=== PATIENT | female | born 1990 | race Hispanic/Latino ===

== ENCOUNTER 2018-04-27 19:44 | Emergency (ER) | payer MEDICAID, OTHER ==
[~2018-04-27 19:44] MED LIST: PNV11TAB5 PO; PREN1TAB26 PO
[2018-04-27] MEDS ORDERED: SODIUM CHLORIDE 0.9% 1000ML 1,000 ML IV ONE (20:07)
[2018-04-27 20:22] LABS: BASOPHILS % (AUTO) 0.3 % (0.0-5.0); EOSINOPHILS % (AUTO) 2.8 % (0.0-8.0); HEMATOCRIT 32.8 % (36-48); MEAN CORPUSCULAR HGB CONC 32.6 g/dL (32.0-36.0); MEAN CORPUSCULAR VOLUME 79.9 fL (79-99); MONOCYTES % (AUTO) 5.7 % (3.0-13.0); NEUTROPHILS % (AUTO) 56.2 % (40.0-77.0); PLATELET COUNT (AUTO) 310 K/uL (130-400); RED CELL DISTRIBUTION WIDTH 14.9 % (11.0-15.5); WHITE BLOOD COUNT (AUTO) 7.8 K/uL (4.8-10.8)
[2018-04-27 20:36] LABS: BILIRUBIN,URINE NEGATIVE (NEGATIVE); GLUCOSE, URINE (UA) NEGATIVE (NEGATIVE); KETONES,URINE NEGATIVE (NEGATIVE); LEUKOCYTE ESTERASE ,URINE NEGATIVE (NEGATIVE); NITRATE,URINE NEGATIVE (NEGATIVE); OCCULT BLOOD,URINE LARGE (NEGATIVE); PROTEIN,URINE >=300 (NEGATIVE); UROBILINOGEN,URINE 0.2 mg/dL (0.2-1.0)
[2018-04-27 20:37] LABS: APPEARANCE,URINE BLOODY (CLEAR); COLOR,URINE RED (YELLOW)
[2018-04-27 20:40] LABS: BACTERIA,URINE Few /HPF (None Seen); RBC,URINE Full Field /HPF (0-1); SQUAMOUS EPITHELIAL CELL,UR None Seen /HPF (0-2)
[2018-04-27 20:42] LABS: CREATININE 0.7 mg/dL (0.5-1.5); POTASSIUM 3.4 mmol/L (3.5-5.1)
[2018-04-27 20:53] LABS: ALBUMIN 4.1 g/dL (3.5-5.0); BILIRUBIN,TOTAL 0.2 mg/dL (0.2-1.0); TOTAL PROTEIN, SERUM 7.9 g/dL (6.0-8.3)
== END 2018-04-27 23:46 | disposition home or self-care (01) ==
LOC: EDH 19:44
DX: O20.0 Threatened abortion (principal); N92.0 Excessive and frequent menstruation with regular cycle; Z3A.01 Less than 8 weeks gestation of pregnancy
CPT/HCPCS: 36415; 76801; 80053; 81001; 84702; 85025; 99285; J7030

== ENCOUNTER 2019-06-24 14:31 | Emergency (ER) | payer MEDICAID, OTHER ==
[2019-06-24 15:19] LABS: APPEARANCE,URINE Clear (CLEAR); BILIRUBIN,URINE Negative (NEGATIVE); COLOR,URINE Dark Yellow (YELLOW); GLUCOSE, URINE (UA) Negative (NEGATIVE); KETONES,URINE 15 mg/dL (NEGATIVE); LEUKOCYTE ESTERASE ,URINE Moderate (NEGATIVE); NITRATE,URINE Negative (NEGATIVE); OCCULT BLOOD,URINE Negative (NEGATIVE); PH,URINE 5.5 (5.0-8.0); PROTEIN,URINE POS 1+ mg/dL (NEGATIVE)
[2019-06-24 15:24] LABS: HCG,QUAL RESULT NEGATIVE (NEGATIVE)
[2019-06-24 15:34] LABS: AMORPHOUS SEDIMENT,UR Few /LPF (None Seen); BACTERIA,URINE Few /HPF (None Seen); MUCUS,URINE Many LPF (None Seen); RBC,URINE None Seen /HPF (0-1)
[2019-06-24 15:39] LABS: RAPID GROUP A STREP NEGATIVE (NEGATIVE)
== END 2019-06-24 16:05 | disposition home or self-care (01) ==
LOC: EDH 14:31
DX: J10.1 Influenza due to other identified influenza virus with other respiratory manifestations (principal)
CPT/HCPCS: 81001; 81025; 87804; 87880

== ENCOUNTER 2020-06-29 11:05 | Emergency (ER) | payer MEDICAID, OTHER ==
[2020-06-29 12:12] LABS: APPEARANCE,URINE Cloudy (CLEAR); BILIRUBIN,URINE Negative (NEGATIVE); COLOR,URINE Yellow (YELLOW); GLUCOSE, URINE (UA) Negative (NEGATIVE); KETONES,URINE Negative (NEGATIVE); LEUKOCYTE ESTERASE ,URINE Negative (NEGATIVE); NITRATE,URINE Negative (NEGATIVE); OCCULT BLOOD,URINE Negative (NEGATIVE); PROTEIN,URINE Negative (NEGATIVE); UROBILINOGEN,URINE 0.2 mg/dL (0.2-1.0)
[2020-06-29 12:17] LABS: BASOPHILS % (AUTO) 0.2 % (0.0-5.0); EOSINOPHILS % (AUTO) 0.7 % (0.0-8.0); HEMATOCRIT 35.7 % (36-48); MEAN CORPUSCULAR HEMOGLOBIN 26.8 pg (27.0-33.0); MEAN CORPUSCULAR HGB CONC 32.8 g/dL (32.0-36.0); MEAN CORPUSCULAR VOLUME 81.7 fL (79-99); MONOCYTES % (AUTO) 6.9 % (3.0-13.0); NEUTROPHILS % (AUTO) 66.9 % (40.0-77.0); PLATELET COUNT (AUTO) 312 K/uL (130-400); RED BLOOD CELL COUNT(AUTO) 4.37 MIL/uL (4.00-5.50); RED CELL DISTRIBUTION WIDTH 15.8 % (11.0-15.5); WHITE BLOOD COUNT (AUTO) 9.2 K/uL (4.8-10.8)
[2020-06-29] MEDS ORDERED: ONDANSETRON 4MG INJ ONE (12:23)
[2020-06-29] MEDS ORDERED: HYDROCODONE/ACETAMINOPHEN 10/325 MG TAB ONE (12:23)
[2020-06-29 12:25] LABS: BACTERIA,URINE Few /HPF (None Seen); RBC,URINE 0-1 /HPF (0-1); WBC,URINE 0-1 /HPF (0-1)
[2020-06-29 12:26] LABS: CREATININE 0.6 mg/dL (0.5-1.5); POTASSIUM 3.8 mmol/L (3.5-5.1)
[2020-06-29 12:30] LABS: ALBUMIN 3.4 g/dL (3.5-5.0); BILIRUBIN,TOTAL 0.1 mg/dL (0.2-1.0); TOTAL PROTEIN, SERUM 7.4 g/dL (6.0-8.3)
[2020-12-13] MEDS ORDERED: PNV11TAB5 PO (06:15)
[2020-12-13] MEDS ORDERED: CALC500T7 PO (06:15)
== END 2020-06-29 14:34 | disposition home or self-care (01) ==
LOC: EDH 11:05
DX: O26.891 Other specified pregnancy related conditions, first trimester (principal); R10.32 Left lower quadrant pain; Z3A.01 Less than 8 weeks gestation of pregnancy
CPT/HCPCS: 36415; 76801; 80053; 81001; 81025; 83690; 84702; 85025; 96361; 96374; 99284; J2405

== ENCOUNTER 2021-01-11 14:38 | Observation (INO) | payer MEDICAID ==
[~2021-01-11 14:38] MED LIST changes: +CALC500T7 PO
[2021-01-11] MEDS ORDERED: DEXTROSE 5%-LACTATED RINGERS 1,000 ML IV SCH (15:30)
== END 2021-01-11 17:30 | disposition home or self-care (01) ==
LOC: LDH 14:38
PROVIDERS: ADMIT Obstetrics & Gynecology; ATTEND Obstetrics & Gynecology
DX: O36.8130 Decreased fetal movements, third trimester, not applicable or unspecified (principal); O99.343 Other mental disorders complicating pregnancy, third trimester; F41.9 Anxiety disorder, unspecified; Z3A.35 35 weeks gestation of pregnancy; Z90.49 Acquired absence of other specified parts of digestive tract
CPT/HCPCS: 59025; 76819; G0378 ×2; 96360

== ENCOUNTER 2021-01-19 20:02 | Observation (INO) | payer MEDICAID ==
[~2021-01-19] VITALS: Ht 157.5 cm; Wt 83.5 kg
[2021-01-19 20:04] VITALS: BP 133/60
[2021-01-19 21:36] LABS: AMPHET/METH SCREEN,URINE NEGATIVE (NEGATIVE); BARBITURATE SCREEN, URINE NEGATIVE (NEGATIVE); BENZODIAZEPINES SCREEN,URINE NEGATIVE (NEGATIVE); CANNABINOID SCREEN,URINE NEGATIVE (NEGATIVE); COCAINE SCREEN,URINE NEGATIVE (NEGATIVE); OPIATE SCREEN,URINE NEGATIVE (NEGATIVE); PHENCYCLIDINE SCREEN,URINE NEGATIVE (NEGATIVE)
[2021-01-19 22:46] LABS: APPEARANCE,URINE Clear (CLEAR); BILIRUBIN,URINE Negative (NEGATIVE); COLOR,URINE Yellow (YELLOW); GLUCOSE, URINE (UA) 250 mg/dL (NEGATIVE); KETONES,URINE Negative (NEGATIVE); LEUKOCYTE ESTERASE ,URINE Trace (NEGATIVE); NITRATE,URINE Negative (NEGATIVE); OCCULT BLOOD,URINE Negative (NEGATIVE); PH,URINE 6.5 (5.0-8.0); PROTEIN,URINE Negative (NEGATIVE)
[2021-01-19 22:56] LABS: BACTERIA,URINE Few /HPF (None Seen); RBC,URINE None Seen /HPF (0-1); SQUAMOUS EPITHELIAL CELL,UR Moderate /HPF (0-2); WBC,URINE 0-1 /HPF (0-1); YEAST,URINE BUDDING None Seen /HPF (None Seen)
[2021-01-19] MEDS ORDERED: LACTATED RINGERS 1000ML 1,000 ML IV SCH (23:00)
== END 2021-01-19 23:55 | disposition home or self-care (01) ==
LOC: EDH 20:02 → LDH 20:03
PROVIDERS: ADMIT Obstetrics & Gynecology; ATTEND Obstetrics & Gynecology
DX: O99.891 Other specified diseases and conditions complicating pregnancy (principal); M54.5 Low back pain; O62.9 Abnormality of forces of labor, unspecified; Z3A.36 36 weeks gestation of pregnancy; Z79.899 Other long term (current) drug therapy; Z98.890 Other specified postprocedural states
CPT/HCPCS: 59025; 80305; 81001; 96360; G0378 ×3

== ENCOUNTER 2021-01-20 15:22 | Observation (INO) | payer MEDICAID ==
[~2021-01-20] VITALS: Ht 165.1 cm; Wt 83.0 kg
[2021-01-20 15:24] VITALS: BP 128/68
[2021-01-20 16:04] LABS: APPEARANCE,URINE Clear (CLEAR); BILIRUBIN,URINE Negative (NEGATIVE); COLOR,URINE Yellow (YELLOW); GLUCOSE, URINE (UA) Negative (NEGATIVE); KETONES,URINE Negative (NEGATIVE); LEUKOCYTE ESTERASE ,URINE Negative (NEGATIVE); NITRATE,URINE Negative (NEGATIVE); OCCULT BLOOD,URINE Negative (NEGATIVE); PROTEIN,URINE Negative (NEGATIVE)
== END 2021-01-20 17:30 | disposition home or self-care (01) ==
LOC: EDH 15:22 → LDH 15:23
PROVIDERS: ADMIT Obstetrics & Gynecology; ATTEND Obstetrics & Gynecology
DX: O99.891 Other specified diseases and conditions complicating pregnancy (principal); M54.5 Low back pain; R10.30 Lower abdominal pain, unspecified; Z3A.36 36 weeks gestation of pregnancy
CPT/HCPCS: 59025; 81003; G0378

== ENCOUNTER 2021-02-01 12:01 | Observation (INO) | payer MEDICAID ==
[~2021-02-01] VITALS: Ht 157.5 cm; Wt 83.0 kg
[2021-02-01 12:03] VITALS: BP 125/74
== END 2021-02-01 15:15 | disposition home or self-care (01) ==
LOC: EDH 12:01 → LDH 12:02
PROVIDERS: ADMIT Obstetrics & Gynecology; ATTEND Obstetrics & Gynecology
DX: O62.9 Abnormality of forces of labor, unspecified (principal); Z3A.38 38 weeks gestation of pregnancy; Z79.899 Other long term (current) drug therapy; Z98.890 Other specified postprocedural states
CPT/HCPCS: 59025; 76805; G0378

== ENCOUNTER 2021-02-06 21:57 | Inpatient (IN) | payer MEDICAID ==
[~2021-02-06] VITALS: Ht 157.5 cm; Wt 83.9 kg
[~2021-02-06 21:57] MED LIST changes: +METHYLERGONOVINE MALEATE 0.2 MG/1 ML ML IM ONE; +OXYTOCIN 10 USP UNITS/ML IM ONE
[2021-02-06] MEDS ORDERED: NALOXONE HCL 0.4 MG/1 ML ML IV PRN (22:30)
[2021-02-06] MEDS ORDERED: LACTATED RINGERS 500 ML 500 ML IV PRN (22:30)
[2021-02-06] MEDS ORDERED: LACTATED RINGERS 1000ML 1,000 ML IV PRN (22:30)
[2021-02-06] MEDS ORDERED: ROPIVACAINE 0.2% 100ML VIAL 100 ML EP PRN (22:30)
[2021-02-06] MEDS ORDERED: PROMETHAZINE HCL 25 MG/ML 1ML AMPULE IM PRN (22:30)
[2021-02-06] MEDS ORDERED: MEPERIDINE-PF 50 MG/ML SYG IVP PRN (22:30)
[2021-02-06] MEDS ORDERED: EPHEDRINE SULFATE 50 MG/ML AMPULE IVP PRN (22:30)
[2021-02-06 23:00] VITALS: BP 120/78
[2021-02-06 23:24] LABS: HEMATOCRIT 26.7 % (36-48); MEAN CORPUSCULAR HEMOGLOBIN 21.8 pg (27.0-33.0); MEAN CORPUSCULAR HGB CONC 30.7 g/dL (32.0-36.0); MEAN CORPUSCULAR VOLUME 70.8 fL (79-99); PLATELET COUNT (AUTO) 283 K/uL (130-400); RED BLOOD CELL COUNT(AUTO) 3.77 MIL/uL (4.00-5.50); RED CELL DISTRIBUTION WIDTH 18.2 % (11.0-15.5); WHITE BLOOD COUNT (AUTO) 6.5 K/uL (4.8-10.8)
[2021-02-07 02:13] LABS: APPEARANCE,URINE Clear (CLEAR); BILIRUBIN,URINE Negative (NEGATIVE); COLOR,URINE Yellow (YELLOW); GLUCOSE, URINE (UA) Negative (NEGATIVE); KETONES,URINE Negative (NEGATIVE); LEUKOCYTE ESTERASE ,URINE Negative (NEGATIVE); NITRATE,URINE Negative (NEGATIVE); OCCULT BLOOD,URINE Negative (NEGATIVE); PH,URINE 6.5 (5.0-8.0); PROTEIN,URINE Negative (NEGATIVE)
[2021-02-07 02:21] LABS: AMPHET/METH SCREEN,URINE NEGATIVE (NEGATIVE); BARBITURATE SCREEN, URINE NEGATIVE (NEGATIVE); BENZODIAZEPINES SCREEN,URINE NEGATIVE (NEGATIVE); CANNABINOID SCREEN,URINE NEGATIVE (NEGATIVE); COCAINE SCREEN,URINE NEGATIVE (NEGATIVE); OPIATE SCREEN,URINE NEGATIVE (NEGATIVE); PHENCYCLIDINE SCREEN,URINE NEGATIVE (NEGATIVE)
[2021-02-07] MEDS ORDERED: OXYTOCIN-LR 20 UNITS/1000 ML 1,000 ML IV SCH ×2 (04:00→12:00)
[2021-02-07] MEDS ORDERED: MISOPROSTOL 200 MCG TABLET ONE (08:11)
[2021-02-07] MEDS ORDERED: ACETAMINOPHEN 325 MG TAB PO PRN (12:00)
[2021-02-07] MEDS ORDERED: MEASLES/MUMPS/RUBELLA VACCINE, LIVE 0.5 ML/VIAL SQ PRN (12:00)
[2021-02-07] MEDS ORDERED: DIPH,PERTUSS(ACELL),TET VAC/PF 0.5 ML VIAL IM PRN (12:00)
[2021-02-07] MEDS ORDERED: WITCH HAZEL 1 PAD TP PRN (12:00)
[2021-02-07] MEDS ORDERED: LANOLIN 30GM OINTMENT TP PRN (12:00)
[2021-02-07] MEDS ORDERED: BENZOCAINE/LANOLIN/ALOE VERA 60 ML AEROSOL TP PRN (12:00)
[2021-02-07] MEDS ORDERED: OXYTOCIN 10 USP UNITS/ML IV SCH (12:00)
[2021-02-07] MEDS ORDERED: METHYLERGONOVINE MALEATE 0.2 MG/1 ML ML IM SCH (12:00)
[2021-02-07] MEDS ORDERED: ACETAMINOPHEN WITH CODEINE 1 TAB TAB PO PRN (12:00)
[2021-02-07] MEDS: IBUPROFEN 600 MG TABLET PO PRN (12:51)
[2021-02-07 13:47] VITALS: BP 122/74
[2021-02-07 16:40] VITALS: BP 128/82
[2021-02-07 20:30] VITALS: BP 131/83
[2021-02-07] MEDS: DOCUSATE SODIUM 100 MG CAP PO SCH (21:37)
[2021-02-07 23:35] VITALS: BP 123/76
[2021-02-08] MEDS: IBUPROFEN 600 MG TABLET PO PRN (01:12)
[2021-02-08 03:36] VITALS: BP 119/70
[2021-02-08 06:31] LABS: MEAN CORPUSCULAR HEMOGLOBIN 21.8 pg (27.0-33.0); MEAN CORPUSCULAR VOLUME 72.8 fL (79-99); RED BLOOD CELL COUNT(AUTO) 3.57 MIL/uL (4.00-5.50); RED CELL DISTRIBUTION WIDTH 18.3 % (11.0-15.5); WHITE BLOOD COUNT (AUTO) 9.7 K/uL (4.8-10.8)
[2021-02-08 07:30] VITALS: BP 109/55
[2021-02-08] MEDS: DOCUSATE SODIUM 100 MG CAP PO SCH (07:41)
[2021-02-08 08:15] LABS: HEPATITIS Bs ANTIGEN SCREEN P Negative (Negative)
== END 2021-02-08 14:00 | disposition home or self-care (01) | DRG 560 ==
LOC: LDH 21:57 → WSH 02-07 14:45
PROVIDERS: ADMIT Obstetrics & Gynecology; ATTEND Obstetrics & Gynecology
PROC: 10E0XZZ Delivery of Products of Conception, External Approach (ICD-10-PCS; principal; 2021-02-07)
PROC: 10907ZC Drainage of Amniotic Fluid, Therapeutic from Products of Conception, Via Natural or Artificial Opening (ICD-10-PCS; 2021-02-07)
PROC: 0KQM0ZZ Repair Perineum Muscle, Open Approach (ICD-10-PCS; 2021-02-07)
PROC: 3E033VJ Introduction of Other Hormone into Peripheral Vein, Percutaneous Approach (ICD-10-PCS; 2021-02-07)
PROC: 3E0R3BZ Introduction of Anesthetic Agent into Spinal Canal, Percutaneous Approach (ICD-10-PCS; 2021-02-07)
PROC: 00HU33Z Insertion of Infusion Device into Spinal Canal, Percutaneous Approach (ICD-10-PCS; 2021-02-07)
PROC: 3E0234Z Introduction of Serum, Toxoid and Vaccine into Muscle, Percutaneous Approach (ICD-10-PCS; 2021-02-07)
PROC: 3E0134Z Introduction of Serum, Toxoid and Vaccine into Subcutaneous Tissue, Percutaneous Approach (ICD-10-PCS; 2021-02-07)
DX: O99.02 Anemia complicating childbirth (principal); O99.344 Other mental disorders complicating childbirth; D64.9 Anemia, unspecified; F41.9 Anxiety disorder, unspecified; O70.1 Second degree perineal laceration during delivery; Z23 Encounter for immunization; Z37.0 Single live birth; Z3A.39 39 weeks gestation of pregnancy
CPT/HCPCS: 36415; 80305; 81003; 85027; 86592; 86850; 86900; 86901; 87340; A4314; G0378; J2210; J2590; J2795; J7120

== ENCOUNTER 2021-05-16 13:12 | Emergency (ER) | payer MEDICAID ==
[~2021-05-16] VITALS: Ht 157.5 cm; Wt 75.3 kg
[~2021-05-16 13:12] MED LIST changes: -METHYLERGONOVINE MALEATE 0.2 MG/1 ML ML IM ONE; -OXYTOCIN 10 USP UNITS/ML IM ONE
[2021-05-16 14:14] LABS: BASOPHILS % (AUTO) 0.2 % (0.0-5.0); EOSINOPHILS % (AUTO) 3.5 % (0.0-8.0); HEMATOCRIT 34.1 % (36-48); LYMPHOCYTES % (AUTO) 39.7 % (21.0-51.0); MEAN CORPUSCULAR HEMOGLOBIN 23.6 pg (27.0-33.0); MEAN CORPUSCULAR HGB CONC 30.5 g/dL (32.0-36.0); MEAN CORPUSCULAR VOLUME 77.3 fL (79-99); MONOCYTES % (AUTO) 5.1 % (3.0-13.0); NEUTROPHILS % (AUTO) 51.3 % (40.0-77.0); PLATELET COUNT (AUTO) 296 K/uL (130-400); RED BLOOD CELL COUNT(AUTO) 4.41 MIL/uL (4.00-5.50); RED CELL DISTRIBUTION WIDTH 17.2 % (11.0-15.5); WHITE BLOOD COUNT (AUTO) 5.5 K/uL (4.8-10.8)
[2021-05-16 14:16] LABS: APPEARANCE,URINE Clear (CLEAR); BILIRUBIN,URINE Negative (NEGATIVE); COLOR,URINE Yellow (YELLOW); GLUCOSE, URINE (UA) Negative (NEGATIVE); KETONES,URINE Negative (NEGATIVE); LEUKOCYTE ESTERASE ,URINE Negative (NEGATIVE); NITRATE,URINE Negative (NEGATIVE); OCCULT BLOOD,URINE Negative (NEGATIVE); PH,URINE 6.5 (5.0-8.0); PROTEIN,URINE Negative (NEGATIVE); UROBILINOGEN,URINE 0.2 mg/dL (0.2-1.0)
[2021-05-16 14:20] LABS: HCG,QUAL RESULT NEGATIVE (NEGATIVE)
[2021-05-16 14:27] LABS: CREATININE 0.7 mg/dL (0.5-1.5); POTASSIUM 3.8 mmol/L (3.5-5.1)
[2021-05-16] MEDS ORDERED: KETOROLAC 30MG VIAL (30MG/ML) IVP ONE (14:30)
[2021-05-16] MEDS ORDERED: 0.9%NACL 1000ML 1,000 ML IV ONE (14:30)
[2021-05-16] MEDS ORDERED: ONDANSETRON 4MG INJ IVP ONE (14:30)
[2021-05-16 14:31] LABS: ALBUMIN 3.6 g/dL (3.5-5.0); BILIRUBIN,TOTAL 0.2 mg/dL (0.2-1.0); TOTAL PROTEIN, SERUM 7.2 g/dL (6.0-8.3)
[2021-05-16 14:54] VITALS: BP 106/68
[2021-05-16] MEDS ORDERED: LACT10PA5 PO (15:35)
[2021-05-16] MEDS ORDERED: LACTULOSE 20 GM/30 ML UDCUP ONE (15:52)
[2021-05-16] MEDS ORDERED: MAGNESIUM CITRATE 296 ML SOLUTION ONE (15:53)
[2021-05-16] MEDS ORDERED: LACTULOSE 20 GM/30 ML UDCUP PO ONE (16:00)
[2021-05-16] MEDS ORDERED: MAGNESIUM CITRATE 296 ML SOLUTION PO ONE (16:00)
== END 2021-05-16 16:03 | disposition home or self-care (01) ==
LOC: EDH 13:12
DX: D64.9 Anemia, unspecified (principal); K59.00 Constipation, unspecified; Z79.899 Other long term (current) drug therapy
CPT/HCPCS: 36415; 74176; 80053; 81003; 81025; 83690; 85025; 96361; 96374; 96375; 99284; J1885; J2405; J7030

== ENCOUNTER 2025-01-24 13:47 | Emergency (ER) | payer SELFPAY ==
[~2025-01-24] VITALS: Ht 157.5 cm; Wt 78.9 kg
[~2025-01-24 13:47] MED LIST changes: +LACT10PA5 PO
--- NOTE | 2025-01-24 14:02 | ERN ---
ED Note History of Present Illness Stated Complaint: HEAD PAIN Chief Complaint: Headache Time Seen by MD: 13:55 Dictation: This is a 34-year-old female who presented to the emergency room complaining of headache for the past 2 weeks off and on. For the past 2 days she started experiencing some numbness in her arms. She also reports pain which she calls it as bone pain. No history of any facial asymmetry, no blurred vision diplopia motor weakness or seizure activity. No history of any dizziness nausea or ataxia Temperature 98.2 pulse 67 respirations 18 blood pressure 113/70 pulse oximetry 98% Allergies: Coded Allergies: No Known Drug Allergies (Verified Allergy, Unknown, 09/12/15) Home Meds Active Scripts Cyclobenzaprine HCl (Cyclobenzaprine HCl) 5 Mg Tablet, 1 TAB PO TIDP PRN for muscle spasms for 5 Days, #15 TAB 0 Refills Prov:MIKI CARBONE MD 01/24/25 Ketorolac Tromethamine (Toradol) 10 Mg Tab, 10 MG PO TID PRN for pain for 5 Days, #20 TAB 0 Refills Prov:MIKI CARBONE MD 01/24/25 Lactulose (Lactulose) 10 Gm Packet, 10 GM PO AM, #30 PKT Prov:IRIS BUSTAMANTE 05/16/21 Reported Medications Calcium Carbonate (Tums) 200 Mg Tab.chew, 200 MG PO AD, TAB.CHEW 12/13/20 Oos307/FA/Omega3/Dha/Fish Oil ( Gummies) 1 Each Tab.chew, 1 EACH PO DAILY, TAB.CHEW 12/13/20 Vit/Iron Fumarate/FA ( Vitamins Tablet) 1 Each Tablet, 1 EACH PO DAILY, TAB 02/12/16 Dzt493/FA/Omega3/Dha/Fish Oil ( Gummies) 1 Each Tab.chew, 1 EACH PO DAILY, TAB.CHEW 09/12/15 Past Medical History Past Medical History: No Pertinent History Surgical History: None Social History: Negative, Lives with family : 6 Para: 3 Aborts: 2 RN Note Reviewed/Agreed w/PFSH: Yes Review of System Dictation Constitutional: Negative for fever,chills, and weight loss Eyes: Negative for injury, pain,redness, and discharge ENT: Negative for injury,pain or swelling Cardiovascular: Negative for chest pain, palpitations, and edema Respiratory: Negative for shortness of breath, cough, and wheezing, Abdomen/GI: Negative for abdominal pain, nausea, vomiting, diarrhea, and constipation Back: Negative for injury and pain : Negative for injury, bleeding and discharge MS/Extremity: Negative for injury and deformity Skin: Negative for rash, and discoloration Neuro: Positive for headache,numbness of both hands but denied tingling, and seizure weakness Psych: Negative for suicide ideation, homicidal ideation, and hallucinations Initial Vital Sign VS Vital Signs Date Time Temp Pulse Resp B/P (MAP) Pulse Ox O2 Delivery O2 Flow Rate FiO2 01/24/25 13:48 98.2 67 18 113/70 98 01/24/25 14:00 Room Air* 0 21 Physical Exam Dictation General: awake, alert, NAD Head/Face: Normocephalic, atraumatic Eyes: PERRL, EOMI, vision at baseline ENT: oral cavity clear, TMs clear, no signs of infection Neck: Trachea midline, supple, no nuchal rigidity Cardiovascular: RRR, normal S1/S2, No MRGs, no JVD Respiratory: CTAB, no respiratory distress, No rales or wheezes Abdomen: Soft, non-tender, non-distended, normal bowel sounds, no guarding or rebound. Skin: Warm, dry, normal turgor, no rash MS/Extremity: Pulses equal, no cyanosis, neurovascular intact, FROM Neuro: COAx4, GCS 15, strength 5/5, CN 2-12 intact, normal cerebellar exam, normal gait, Psych: Normal behavior, mood, and affect normal Extremities-trace edema without any palpable cords, Homans sign is negative Results (Laboratory/Radiology) Laboratory/Radiology Laboratory Tests Test 01/24/25 14:09 Urine Color LIGHT-YELLOW (YELLOW) Urine Appearance CLEAR (CLEAR) Urine pH 6.5 (5.0-8.0) Urine Specific [place] 1.018 (1.001-1.031) Urine Protein NEGATIVE mg/dL (NEGATIVE) Urine Glucose (UA) NEGATIVE mg/dL (NEGATIVE) Urine Ketones NEGATIVE mg/dL (NEGATIVE) Urine Occult Blood NEGATIVE (NEGATIVE) Urine Nitrate NEGATIVE (NEGATIVE) Urine Bilirubin NEGATIVE mg/dL (NEGATIVE) Urine Urobilinogen 0.2 mg/dL (0.2-1.0) Urine Leukocyte Esterase NEGATIVE David/uL Urine HCG, Qualitative NEGATIVE (NEGATIVE) Urine Opiates Screen NEGATIVE (NEGATIVE) Urine Barbiturates Screen NEGATIVE (NEGATIVE) Urine Phencyclidine Screen NEGATIVE (NEGATIVE) Urine Amphetamines Screen NEGATIVE (NEGATIVE) Urine Benzodiazepines Screen NEGATIVE (NEGATIVE) Urine Cocaine Screen NEGATIVE (NEGATIVE) Urine Marijuana (THC) Screen NEGATIVE (NEGATIVE) Labs Reviewed?: Yes CT Scan Comment: REASON: headache, numbness of hands ORDERING PHYSICIAN: MIKI CARBONE MD PROCEDURE: C SPIN WO - CT CERVICAL SPINE W/O CONTRAST EXAM: CT Cervical Spine Without IV contrast. CLINICAL HISTORY: headache, numbness of hands TECHNIQUE: Axial computed tomography images of the cervical spine without intravenous contrast. Sagittal and coronal reformatted images were generated. COMPARISON: None provided. FINDINGS: ALIGNMENT: There is straightening of cervical spine, reflecting paraspinal muscles causing. No dislocation. DEGENERATIVE CHANGES: No significant canal stenosis or neural foraminal narrowing is evident. Grade I retrolisthesis of the C6 vertebra over the D7 vertebra. SOFT TISSUES: The prevertebral soft tissues are within normal limits. Few subcentimetric cervical lymph nodes. BONES: There is a lytic lesion with sclerotic margins in the C5, C6, and C7 vertebral bodies, the largest of which is 5.2 x 7.4 mm in the C7 vertebral body. (recommendation: MRI cervical spine) No acute fracture. IMPRESSION: 1. Lytic lesions with sclerotic margins in C5, C6, and C7 vertebral bodies, the largest measuring 5.2 x 7.4 mm in C7. Recommend MRI of the cervical spine for further evaluation. 2. No acute fracture or significant canal stenosis. 3. Straightening of the cervical spine which may be due to paraspinal muscle spasm. No dislocation. /[facility] DICTATED BY: JUAN MEI MD DATE: 01/24/251638 ELECTRONICALLY SIGNED BY: JUAN MEI MD DATE: 01/24/251638 ED Course ED Course Orders Procedure Category Date Status Time Urinalysis Profile LAB 01/24/25 Complete 13:59 ,Urine Test LAB 01/24/25 Complete 13:59 Ct Cervical Spine W/O CT 01/24/25 Resulted Contrast 13:59 Drug Screen Urine LAB 01/24/25 Complete 14:01 Ketorolac PHA 01/24/25 Complete Tromethamine 30mg/Ml 15:00 Orphenadrine Citrate PHA 01/24/25 Complete (Norflex) 15:00 Current Medications Medications (Trade) Dose Ordered Sig/Jatin Route PRN Reason Start Time Stop Time Status Last Admin Dose Admin Ketorolac Tromethamine (toRADol) 30 mg ONCE ONCE IM 01/24/25 15:00 01/24/25 15:02 DC 01/24/25 15:37 Orphenadrine Citrate (Norflex) 30 mg ONCE ONCE IM 01/24/25 15:00 01/24/25 15:02 DC 01/24/25 15:36 Vital Signs Date Time Temp Pulse Resp B/P (MAP) Pulse Ox O2 Delivery O2 Flow Rate FiO2 01/24/25 16:20 98.2 71 18 110/64 98 Room Air* 0 21 01/24/25 14:00 98.2 67 18 113/70 98 Room Air* 0 21 01/24/25 13:48 98.2 67 18 113/70 98 We will perform diagnostic labs, advanced imaging and administer medications according to the patient's complaint. Once the results are available, will review and personally interpreted the labs to rule out any acute life- threatening emergency the trach require immediate intervention and treatment. I will then re-evaluate the patient after treatment and diagnostic exams have return to determine whether the patient requires any further testing, can safely be discharged home or need further admission to hospital for additional treatment and evaluation. Medical Decision Making MDM MDM: Differential diagnosis: Migraine, tension headache, cluster headache, partial hemicrania cervicalgia Rationale: Tests considered and ordered secondary to shared decision making include: Previous outside records reviewed: Old ER visits. Risk of complication and/or morbidity or mortality of patient management: None Medications-Per medication reconciliation Need for hospitalization: Patient does not meet criteria for hospitalization. Need for emergency major/minor surgery: No There are no social concerns with this patient. Prescription drug management Prescriptions will include symptomatic care Patient's prior external medical records from other ER visits were reviewed by me as indicated. Prior testing and results from previous visits were reviewed. Prior tests were taken into account with medical decision making and resource utilization, independent historian/historians were used to obtain complete medical history. I independently interpreted the test that were performed, results were reviewed by me and considered findings on radiology if ordered. Medical management and examination interpretation discussions were had by me with other qualified healthcare professionals as indicated for the patient's care. Problem List Problem List: (1) Headache syndrome (2) Cervical radiculopathy (3) Abnormal CT scan, cervical spine DX & DISP Disposition: Discharge Departure Impression: Primary Impression: Headache syndrome Additional Impressions: Abnormal CT scan, cervical spine, Cervical radiculopathy, Lesion of bone of cervical spine Condition: Stable Scripts Cyclobenzaprine HCl (Cyclobenzaprine HCl) 5 Mg Tablet 1 TAB PO TIDP PRN for muscle spasms for 5 Days, #15 TAB 0 Refills Prov: MIKI CARBONE MD 01/24/25 Ketorolac Tromethamine (Toradol) 10 Mg Tab 10 MG PO TID PRN for pain for 5 Days, #20 TAB 0 Refills Prov: MIKI CARBONE MD 01/24/25 Additional Instructions: Patient and the caregiver have been informed of all the diagnostic tests and the imaging conducted during the today's visit to the emergency room and has verbalized understanding of the results I have personally reviewed and interpreted all diagnostic exams performed here in the ER today as well as the vital signs documented by the nursing staff. The patient is now being discharged to home and should follow up with the primary care physician or the specialist as directed by the ER staff. Follow-up with primary care provider in 1 to 2 days. Take medications as directed here in the emergency room. Okay to continue home medications unless otherwise discussed during your visit in the emergency room today. Return to your nearest emergency room if symptoms worsen or if there is no improvement. Call 911 if you need immediate assistance. Take Tylenol or Motrin [id number] as needed and if no contraindications are present. Increase oral hydration. A wound culture or urine culture was ordered here in the emergency room department please follow-up with primary care provider and advise them to get repeat ports from our facility. If you had any Gino wrap/splints that were applied here, please do not remove them until you see your primary care or specialty. Referrals: SELF,REFERRAL (PCP) BLAINE NUNES MD PLEASE CALL [facility] FOR EVALUATION OF LYTIC LESIONS IN THE NECK. MIKI CARBONE MD Jan 24, 2025 14:02
--- NOTE | 2025-01-24 14:20 | NUR ---
PENDING TEST RESULTS FOR CT EXAM.
[2025-01-24 14:22] LABS: APPEARANCE,URINE CLEAR (CLEAR); GLUCOSE, URINE (UA) NEGATIVE (NEGATIVE); LEUKOCYTE ESTERASE ,URINE NEGATIVE Leu/uL (NEGATIVE); NITRATE,URINE NEGATIVE (NEGATIVE); OCCULT BLOOD,URINE NEGATIVE (NEGATIVE)
[2025-01-24 14:23] LABS: ADD UA MICROSCOPIC NO
[2025-01-24 14:25] LABS: HCG,QUALITATIVE URINE NEGATIVE (NEGATIVE)
[2025-01-24 14:31] LABS: AMPHET/METH SCREEN,URINE NEGATIVE (NEGATIVE); BARBITURATE SCREEN, URINE NEGATIVE (NEGATIVE); CANNABINOID SCREEN,URINE NEGATIVE (NEGATIVE); COCAINE SCREEN,URINE NEGATIVE (NEGATIVE)
[2025-01-24] MEDS: ORPHENADRINE 60MG/2ML IM ONE (15:36)
--- NOTE | 2025-01-24 15:39 | HMCIMG ---
EXAM: CT Cervical Spine Without IV contrast. CLINICAL HISTORY: headache, numbness of hands TECHNIQUE: Axial computed tomography images of the cervical spine without intravenous contrast. Sagittal and coronal reformatted images were generated. COMPARISON: None provided. FINDINGS: ALIGNMENT: There is straightening of cervical spine, reflecting paraspinal muscles causing. No dislocation. DEGENERATIVE CHANGES: No significant canal stenosis or neural foraminal narrowing is evident. Grade I retrolisthesis of the C6 vertebra over the D7 vertebra. SOFT TISSUES: The prevertebral soft tissues are within normal limits. Few subcentimetric cervical lymph nodes. BONES: There is a lytic lesion with sclerotic margins in the C5, C6, and C7 vertebral bodies, the largest of which is 5.2 x 7.4 mm in the C7 vertebral body. (recommendation: MRI cervical spine) No acute fracture. IMPRESSION: 1. Lytic lesions with sclerotic margins in C5, C6, and C7 vertebral bodies, the largest measuring 5.2 x 7.4 mm in C7. Recommend MRI of the cervical spine for further evaluation. 2. No acute fracture or significant canal stenosis. 3. Straightening of the cervical spine which may be due to paraspinal muscle spasm. No dislocation. /[place]
[2025-01-24 16:20] VITALS: BP 110/64; PULSE 71; RESP 18; TEMP 98.2; O2SAT 98
[2025-01-24] MEDS ORDERED: CYCL5TAB3 PO (16:27)
[2025-01-24] MEDS ORDERED: KETO10 PO (16:27)
== END 2025-01-24 16:43 | disposition home or self-care (01) ==
LOC: EDH 13:47
DX: G44.89 Other headache syndrome (principal); M54.12 Radiculopathy, cervical region
CPT/HCPCS: 99285; 72125; 80305; 81025; 96372 ×2; 81003; J1885; J2360